=== PATIENT | male | born 1950 | race Caucasian/White ===

== ENCOUNTER 2025-01-27 16:01 | Emergency (ER) | payer OTHER, SELFPAY ==
[2025-01-27 16:08] VITALS: BP 108/62
--- NOTE | 2025-01-27 16:08 | ED.GENMED ---
History of Present Illness
General
Chief Complaint: Abdominal Symptoms
Source: patient, family and ambulance crew
Exam Limitations: none
Time Seen by Provider: 01/27/25 16:06
Nursing documentation reviewed up to this point in time: agreed with
History of Present Illness
History of Present Illness:
74-year-old male with history as noted presents to the ER for evaluation of nausea and vomiting. Patient was at a graduation ceremony for [facility] [employer] for his granddaughter when he began to feel nauseated and had multiple episodes of
vomiting. Daughter called EMS to bring him to the hospital. Patient reports that nausea is starting to improve although he did vomit shortly after arrival here. Per EMS report he was noted to be hypotensive on the way to the hospital however he
has a history of chronic hypotension and takes midodrine regularly, last dose was this morning. He was given approximately 100 cc of normal saline on the way to the hospital. Aside from nausea and vomiting patient did have massive loose bowel
movement prior to arrival. He reports some mild abdominal discomfort. Denies any chest pain. He denies feeling short of breath. Denies feeling dizzy or lightheaded. He denies any recent fever or chills. Denies any other complaints.
Review of Systems
Review of Systems
All Other Systems: ROS reviewed and negative except as documented in HPI and ROS
Constitutional: Denies fever or chills
Respiratory: Denies trouble breathing
Cardiac: Denies chest pain or syncope
ABD/GI: Reports abdominal pain, nausea, vomiting and diarrhea
: Denies flank pain
Musculoskeletal: Denies neck pain or back pain
Neurological: Denies dizzy or headache
Phy Exam
Physical Exam
Physical Exam:
General: Awake, alert, sitting up in bed holding emesis basin
Eyes: Conjunctiva normal, sclera anicteric
Throat: Airway intact, handling secretions
Neck: Trachea midline, supple without meningismus
Lungs: Clear to auscultation bilaterally, no wheezing, rales, rhonchi
Heart: Regular rate and rhythm, no murmurs, gallops, or rubs
Abd: Soft, non distended, mild diffuse tenderness, no masses appreciated
Neuro: No gross deficits
Skin: Warm and well-perfused
Extremities: No edema in extremities, equal pulses in all extremities
Scores
Heart Failure Risk
Heart Failure Risk Score: Not Applicable
Heart Score for Chest Pain Patients
STEMI patient?: Not applicable
Withdrawal Assessment of Alcohol
Withdrawal Assessment Completed?: Not applicable
Course
Orders/Labs/Results
Orders:
Orders
01/27/25 16:07
Electrocardiogram (*1) Urgent
Reason for Study: Abdominal Pain
EKG- Treatment ONCE
0.9% Sodium Chloride 500 ml [Nss] 500 ml IV BOLUS
Ondansetron Injectable [Zofran] 4 mg IV NOW STA
01/27/25 16:10
Complete Blood Count/With Diff Urgent
Comprehensive Metabolic Panel Urgent
Lipase Urgent
Troponin I Urgent
01/27/25 16:12
COVID-19 Antigen Urgent
Source: Nasal Swab
Influenza A+B Rapid Molecular Urgent
JUSTINO Source: Nasal Swab
Specimen Description:
01/27/25 16:26
CT Abd/pelvis W Iv Cont Urgent
Comment:
Reason For Exam: N/V, abd pain
01/27/25 18:20
Urinalysis Reflex To Culture Urgent
Date Specimen was Collected: 01/27/25
Time Specimen was Collected: 18:32
01/27/25 18:50
Electrocardiogram (*1) Urgent
Reason for Study: Abdominal Pain
EKG- Treatment ONCE
01/27/25 19:05
Troponin I Urgent
Abnormal Lab Results
01/27/25
16:10
RBC 4.43 L 10^6/uL
(4.70-6.10)
MCH 31.8 H pg
(27.0-31.0)
MPV 13.1 H fL
(7.4-10.4)
Abs Immat Gran (auto) 0.1 H 10^3/uL
(0-0.05)
Absolute Lymphs (auto) 1.1 L 10^3/uL
(1.2-3.4)
Absolute Monos (auto) 0.8 H 10^3/uL
(0.1-0.6)
Immature Gran % 1.0 H %
(0-0.5)
Lymphocytes % 13.5 L %
(20.5-51.1)
Monocytes % 10.1 H %
(1.7-9.3)
Eosinophils % 6.3 H %
(0-6)
BUN 31 H mg/dl
(9-20)
Creatinine 1.5 H mg/dL
(0.7-1.3)
Glucose 255 H mg/dl
(70-99)
01/27/25 16:10
01/27/25 16:10
Vital Signs
Initial and Last Documented VS:
Initial Vital Signs
Pulse Resp
88 16
01/27/25 16:05 01/27/25 16:05
Last Documented Vital Signs
Temp Pulse Resp BP Pulse Ox
36.7 C 76 16 104/61 99
01/27/25 16:08 01/27/25 16:45 01/27/25 16:45 01/27/25 16:34 01/27/25 16:45
MDM/Problems Addressed
Differential Diagnosis Includes:
Gastritis, pancreatitis, anginal equivalent, bowel obstruction, gastroenteritis, colitis, food poisoning, heatstroke
MDM/Problems Addressed:
74-year-old male presents for evaluation of nausea/vomiting, diarrhea and abdominal discomfort [facility] Vitals and exam as above. Will plan to place an IV check labs including a CBC and a
CMP, lipase. Will check an EKG and troponin. Send viral swabs. Check CT abdomen pelvis. Provide fluids and antiemetic. Will monitor closely reassess after the above.
Patient's family at bedside confirmed that he has a long history of hypertension and took extra midodrine this morning as they knew he was going to graduation. Apparently he has a long history of nausea and vomiting and this is not unusual for him
typically happens after he smokes a cigarette.
Labs reviewed: CBC no clinically significant abnormalities. CMP shows creatinine of 1.5 unclear chronicity. Random glucose 255 in the setting of known diabetes. His troponin is undetectable. Lipase normal. CT abdomen pelvis shows questionable
cystitis but no other acute abnormalities. Patient denies any urinary symptoms. Will send urinalysis. Clinical reassessment he says he is feeling much better says he feels back to normal. No additional vomiting. Blood pressure has been stable.
Will continue IV fluids and monitor blood pressure and symptoms pending urinalysis and repeat troponin.
Repeat troponin was undetectable. Patient has remained asymptomatic since initial dose of Zofran. He says he is feeling very well and is requesting discharge. He did not provide urine sample yet�unfortunately urinated prior to giving us a
sample�but he has no urinary symptoms, no suprapubic tenderness, no fever, no leukocytosis to suggest urinary tract infection. He wishes to go home and feels comfortable with this; I think that is a reasonable plan at this point. He will
follow-up with his primary doctor as an outpatient. Provided copy of CT report for follow-up. Spoke about return precautions all questions answered.
Chronic conditions affecting care:
CAD
*Radiology
Radiology exam reviewed: radiology read reviewed
*Pulse Oximetry
Patient hypoxic: no
*EKG
Interpreted by ED Provider?: Yes
Heart Rate: 75
Rate: normal
Rhythm: sinus and PVC's
[place]: normal axis
Interval: normal interval
QRS Pattern: right bundle branch block
Ischemia: other (Nonspecific T wave abnormalities)
*Critical Care Note
Total Time (30-74mins, 75-104mins- exclusive of procedures): Not Applicable
Data Reviewed
Source: patient, family and ambulance crew
ED Attending Note
-
Portions of this chart may have been created with voice recognition software.� Occasional wrong word or��sound alike� substitutions may have occurred due to the inherent limitations of voice recognition software.
Discharge Plan
Departure
Patient Disposition: Home (Routine Discharge)
Date of Disposition: 01/27/25
Time of Disposition: 20:31
Patient with high blood pressure during this ER visit?: No
Discharge Problem:
Nausea & vomiting
Instructions: Nausea and Vomiting, Adult (DC)
Referrals:
PRIVATE,PHYSICIAN [Family Provider, Internal Medicine]
Activity Restrictions/Additional Instructions:
Thank you for visiting the Emergency Department at [facility].
1. Please schedule a follow up appointment as directed. Call first thing tomorrow morning to make an appointment.
2. If indicated, please take your medications as instructed and indicated on discharge paperwork.
3. If any of your symptoms do not improve, or persist, or become more severe within 6-12 hours, please return to the emergency department for further care.
4. Please return to the emergency department if you develop a headache, neck pain/stiffness, fever greater than 100.4F, chest pain, shortness of breath, persistent nausea, vomiting, slurred speech, difficulty walking, numbness/tingling, weakness,
signs of infection or any other symptoms that are worrisome to you.
Please call [phone] if you have any questions.
Interventions
Interventions:
*Risk Screen - Suicide Last Done: 01/27/25 16:11
*General Assessment Last Done: 01/27/25 16:11
*Neglect/Abuse Screening Last Done: 01/27/25 16:11
*ED- Fall Risk Assessment Last Done: 01/27/25 16:11
*ED COVID-19 Vaccine History Last Done: 01/27/25 16:11
[place]-Cawrqy-Bflnddsjcw Assessment Last Done: 01/27/25 16:53
Discharge Date and Time
Print Language: TONGAN
[2025-01-27 16:09] VITALS: BP 108/62
[2025-01-27] MEDS: ZOFRAN 4 MG IV (16:14)
[2025-01-27 16:15] VITALS: BMI 20.6
[2025-01-27 16:27] LABS: % Basophils 1.2 % (0-2); % Eosinophils 6.3 % (0-6); % Lymphocytes 13.5 % (20.5-51.1); % Monocytes 10.1 % (1.7-9.3); % Neutrophils 67.9 % (42.2-75.2); Absolute Basophils 0.1 10^3/uL (0-0.2); Absolute Eosinophils 0.5 10^3/uL (0-0.7); Absolute Immature Granulocytes 0.1 10^3/uL (0-0.05); Absolute Lymphocytes 1.1 10^3/uL (1.2-3.4); Absolute Monocytes 0.8 10^3/uL (0.1-0.6); Absolute Neutrophils 5.7 10^3/uL (1.4-6.5); Hematocrit 41.4 % (39.0-52.0); Hemoglobin 14.1 g/dL (13.0-18.0); Mean Corp Hgb Conc. 34.1 g/dL (33.0-37.0); Mean Corpuscular Hgb 31.8 pg (27.0-31.0); Mean Corpuscular Volume 93.5 fL (80.0-94.0); Mean Platelet Volume 13.1 fL (7.4-10.4); Nucleated Red Blood Cells % 0 % (-); Platelet Count 171 10^3/uL (130-400); Red Blood Cell Count 4.43 10^6/uL (4.70-6.10); Red Cell Dist. Width 13.9 % (11.5-14.5); White Blood Cell Count 8.3 10^3/uL (4.8-10.8)
[2025-01-27 16:34] VITALS: BP 104/61
[2025-01-27 16:36] LABS: ALT (SGPT) 44 U/L (0-50); AST (SGOT) 34 U/L (17-59); Albumin 4.4 g/dl (3.5-5.0); Alkaline Phosphatase 64 U/L (38-126); Blood Urea Nitrogen 31 mg/dl (9-20); Calcium 9.9 mg/dl (8.4-10.2); Carbon Dioxide 25 mmol/L (22-30); Chloride 106 mmol/L (98-107); Estimated Creatinine Clearance 36 ml/min; Glucose 255 mg/dl (70-99); Lipase 89 U/L (23-300); Potassium 4.9 mmol/L (3.5-5.1); Sodium 141 mmol/L (135-145); Total Bilirubin 1.2 mg/dl (0.2-1.3); Total Protein 6.6 g/dl (6.3-8.2); eGFR 47.95
[2025-01-27 16:45] LABS: Troponin I < 0.012 ng/ml
[2025-01-27 16:59] LABS: COVID-19 Antigen Negative (Negative)
[2025-01-27 17:00] VITALS: BP 93/61
[2025-01-27] MEDS: NSS 500 IV (17:28)
[2025-01-27 19:01] VITALS: BP 128/77
[2025-01-27 19:53] LABS: Troponin I < 0.012 ng/ml
[2025-01-27 20:00] VITALS: BP 124/71
[2025-01-27 20:46] LABS: Urine Albumin 1+ (Neg - Trace); Urine Bilirubin Negative (Negative); Urine Character Clear (Clear); Urine Color Yellow; Urine Glucose 4+ (Negative); Urine Ketone Negative (Negative); Urine Leukocyte Negative (Negative); Urine Nitrite Negative (Negative); Urine Occult Blood Negative (Negative); Urine Urobilinogen Negative (Neg - 1+)
[2025-01-27 20:56] LABS: Urine Bacteria Few (Negative); Urine Red Blood Cell 0-2 /HPF (0-2)
== END 2025-01-27 20:57 | disposition home or self-care (01) ==
LOC: EMR 16:01
PROVIDERS: EMERGENCY PHYSICIAN Emergency Medicine
DX: R11.2 Nausea with vomiting, unspecified (principal); I10 Essential (primary) hypertension; Z79.899 Other long term (current) drug therapy; Z11.52 Encounter for screening for COVID-19
CPT/HCPCS: 99284; 96374; 96361; 74177; 80053; 81003; 81015; 83690; 84484; 85025; 87502; 87811; 93005; Q9967